=== PATIENT | male | born 2005 | race Two or more races ===

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

== ENCOUNTER 2025-02-01 00:36 | Emergency (ER) | payer OTHER, SELFPAY ==
[2025-02-01 00:37] VITALS: BP 130/83; PULSE 63; RESP 17; TEMP 36.6; O2SAT 100
--- OUTSIDE RECORDS SUMMARY | 2025-02-01 00:38 | XMS_ITS | Clinical Summary ---
Author Organization [facility] Address [address] [place] [address] Care Team Providers Care Laboratory Aide Name Role Phone Unavailable Primary Care Provider Unavailabl e Source Comments [facility],non-owned Affiliates and Associated Physician Practices is amultiple site organization consisting of ambulatory clinics and hospital sitesin [place], [place], [place] and [place]. This disclosure is being madepursuant to the Care Everywhere program and may not contain all information available regarding this patient. Last updated 18.[employer] Allergies No known active allergies Medications * Be aware that medications may not be up to date on this document. Alwaysverify current medications with the patient. No known medications Family History Medical History Relation Name Comments ADHD Neg Hx Allergies Neg Hx Aneurysm Neg Hx Asthma Neg Hx Autoimmune Disease Neg Hx Bipolar Disorder Neg Hx CVA<55(male) Neg Hx CVA<65(female) Neg Hx Cancer - Breast Neg Hx Cancer - Colon Neg Hx Cancer - Other Neg Hx Cancer - Ovarian Neg Hx Cancer - Pancreatic Neg Hx Cancer - Prostate Neg Hx Childhood Hearing Disorder Neg Hx Clotting Disorder Neg Hx Depression Neg Hx Diabetes Neg Hx Eczema Neg Hx Genetic Neg Hx Heart defect Neg Hx Hypercholesterolemia Neg Hx Hypertension Neg Hx VT<55(male) Neg Hx VT<65(female) Neg Hx Mental Health Neg Hx Migraine Neg Hx Osteoporosis Neg Hx Seizures Neg Hx Sudd. <30 Neg Hx Thyroid Disease Neg Hx Ulcerative Colitis Neg Hx Social History Tobacco Use Types Packs/Day Years Used Date Smoking Tobacco: Never Sex and Gender Information Value Date Recorded Sex Assigned at Not on file Legal Sex Male 3:53 PM CDT Gender Identity Not on file Sexual Orientation Not on file Last Filed Vital Signs Vital Sign Reading Time Taken Comments Blood Pressure 102/64 04/04/2016 4:03 PM CDT Pulse 74 04/04/2016 4:03 PM CDT Temperature 37.1 C (98.7 F) 04/04/2016 4:03 PM CDT Respiratory Rate 20 04/04/2016 4:03 PM CDT Oxygen Saturation 98% 04/04/2016 4:03 PM CDT Inhaled Oxygen Concentration - - Weight 37.6 kg (83 lb) 04/04/2016 4:03 PM CDT Height 144.8 cm (4' 9) 04/04/2016 4:03 PM CDT Body Mass Index 17.96 04/04/2016 4:03 PM CDT Plan of Treatment Health Maintenance Due Date Last Done Comments HIV SCREENING 2019 HPV VACCINE (1 - Male 3-dose series) 2019 MENINGOCOCCAL (Group B) VACC INE SHARED DECISION-MAKING (1 of 2 - Standard) 2020 HEPATITIS C SCREENING 05/30/2022 DTAP/TDAP/TD VACCINES (1 - Tdap) 2023 HEPATITIS B VACCINE (1 of 3 - 19+ 3-dose series) 2023 COVID-19 VACCINE (1 - 2023-2 5 season) 2024 DEPRESSION SCREENING 08/03/2024 INFLUENZA VACCINE (Season Ended) 2025 ZOSTER VACCINE (1 of 2) 2054 HIB VACCINE Aged Out No longer eligi ble based on patient's age to complete this topic MENINGOCOCCAL GROUPS A/C/Y/W VACCINE Aged Out No longer eligible b ased on patient's age to complete this topic PNEUMOCOCCAL VACCINE Aged Out No long er eligible based on patient's age to complete this topic
--- OUTSIDE RECORDS SUMMARY | 2025-02-01 01:38 | XMS_ITS | Clinical Summary ---
Author Organization [facility] Address [address] [place] [address] Care Team Providers Care District Court Justice Name Role Phone Unavailable Primary Care Provider Unavailabl e Source Comments [facility],non-owned Affiliates and Associated Physician Practices is amultiple site organization consisting of ambulatory clinics and hospital sitesin [place], [place], [place] and [place]. This disclosure is being madepursuant to the Care Everywhere program and may not contain all information available regarding this patient. Last updated 18.[employer] Allergies No known active allergies Medications * [...] Hx Hypercholesterolemia Neg Hx Hypertension Neg Hx MN<55(male) Neg Hx MN<65(female) Neg Hx Mental Health Neg Hx Migraine [...]
--- NOTE | 2025-02-01 02:00 | ED_ITS ---
HPI - Wound/Laceration General Chief Complaint: Wound/Laceration Stated Complaint: Lac to L thumb Time Seen by Provider: 02/01/25 01:21 Source: patient Mode of arrival: ambulatory Limitations: no limitations History of Present Illness HPI narrative: This is a 19 year old male that presents to the ER for laceration to the left thumb sustained just prior to arrival. Reports he accidentally cut his thumb with a blade. Reports bleeding and pain to the area. Denies decreased ROM or numbness. Related Data Allergies Allergy/AdvReac Type Severity Reaction Status Date / Time No Known Allergies Allergy Verified 02/01/25 00:36 Review of Systems Review of Systems: All systems reviewed & are unremarkable except as noted in HPI and below PMFSH Past Medical History Medical History (Updated 02/01/25 @ 03:02 by Margarita Hill PA-C) No active medical problems Exam Narrative: GENERAL: Well-appearing, well-nourished, and in no acute distress. HEAD: Normocephalic, atraumatic. EYES: EOMI. EXTREMITIES: Normal range of motion. No edema. 2cm linear laceration into subcutaneous tissue to the left thumb volar aspect proximal phalanx SKIN: Warm, dry, no rash. NEURO: No focal deficits. Alert and oriented x3. PSYCH: Normal mood and affect Course Vital Signs Vital signs: Vital Signs Temperature 97.8 F 02/01/25 00:37 Pulse Rate 63 02/01/25 00:37 Respiratory Rate 17 02/01/25 00:37 Blood Pressure 130/83 02/01/25 00:37 Pulse Oximetry 100 02/01/25 00:37 Oxygen Delivery Room Air 02/01/25 00:37 Temperature 97.8 F 02/01/25 00:37 Pulse Rate 63 02/01/25 00:37 Respiratory Rate 17 02/01/25 00:37 Blood Pressure 130/83 02/01/25 00:37 Pulse Oximetry 100 02/01/25 00:37 Oxygen Delivery Room Air 02/01/25 00:37 Procedures Laceration Laceration 1: Date: 02/01/25 Time: 03:03 Site: hand Side (If applicable): left Size (cm): 2 Description: linear Depth: simple, single layer Local Anesthetic: lidocaine 1% Amount of anesthesia used (mL): 2 Pre-repair: wound explored and irrigated ====== Skin Level ====== Skin layer closed with: nylon Size (cm): 4-0 Number of sutures: 2 Technique: simple, interrupted ====== Subcutaneous Layer ====== ====== Muscle Layer ====== ====== Tendon Layer ====== MDM - Wound/Laceration MDM Narrative Medical decision making narrative: Patient presents emergency department for laceration to the left thumb. He is neurovascularly intact. Laceration was irrigated and closed with sutures. Reports he is up-to-date on tetanus vaccination. Educated on further wound care. Given warnings to return to the ER Differential Diagnosis Differential diagnosis: Likely laceration, abrasion and avulsion of skin Critical Care Time Critical Care Time Critical Care Time: No Discharge Plan Discharge Clinical Impression: Laceration Patient Disposition: Home Condition: Stable Instructions: Care For Your Stitches (ED), Laceration (ED) Additional Instructions: Return to the emergency department if you experience fever, redness or swelling of your wound, abnormal drainage from your wound, or any other symptoms that are concerning to you. Apply antibiotic ointment daily. Do not soak the wound. Clean with mild soap and water daily Follow-up with your primary care doctor for suture removal in 10-14 days. Patient Language: Djiboutian Prescriptions: No Action acetaminophen 500 mg tablet 500 mg PO Q6H PRN (Reason: pain) Qty: 30 0RF Follow-up/Referrals: PHYSICIAN,EMBEDDED SOFTWARE MANAGER [Primary Care Provider] - Efe Jackson MD [Physician] -
[2025-02-01 03:09] VITALS: BP 122/77; PULSE 88; RESP 18; O2SAT 100
== END 2025-02-01 03:09 | disposition home or self-care (01) ==
PROVIDERS: Emergency Provider Physician Assistant
DX: S61.012A Laceration without foreign body of left thumb without damage to nail, initial encounter (principal); W26.0XXA Contact with knife, initial encounter
CPT/HCPCS: 12001; 99282

== ENCOUNTER 2025-02-13 11:21 | Emergency (ER) | payer OTHER, SELFPAY ==
--- NOTE | 2025-02-13 11:23 | ED_ITS ---
HPI - Wound/Laceration General Chief Complaint: Skin/Abscess/Foreign Body Stated Complaint: stitch removal Source: patient and RN notes reviewed Mode of arrival: ambulatory Limitations: no limitations History of Present Illness HPI narrative: Patient is a 19-year-old male who presents to the [facility] with request for suture removal. 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 Related Data Home Medications ?Medication ?Instructions ?Recorded ?Confirmed ?Last Taken ?Type No Home Medications 02/13/25 02/13/25 Unknown History Allergies Allergy/AdvReac Type Severity Reaction Status Date / Time No Known Allergies Allergy Verified 02/13/25 11:33 Review of Systems Review of Systems: CONSTITUTIONAL: Denies fever, chills, or sweats. EYES: Denies visual changes, redness, or discharge. ENT: Denies otalgia and sore throat CARDIOVASCULAR: Denies chest pain, palpitations, or edema. RESPIRATORY: Denies cough or dyspnea. GASTROINTESTINAL: Denies abdominal pain, nausea, vomiting, or diarrhea. GENITOURINARY: Denies dysuria or hematuria. SKIN: Reports wound to left thumb. MUSCULOSKELETAL: Denies back pain, joint pain, or myalgia. NEUROLOGIC: Denies headache, numbness, or weakness. Pertinent positives per HPI. [facility] Past Medical History Medical History No active medical problems Comments At the time of my signature, I reviewed and agree with the nursing past medical, surgical, social, and family history. There is no relevant family history pertinent to the patient complaint. Exam Narrative: GENERAL: This is a well-nourished, well-developed patient, in no apparent distress. HEAD: normocephalic, atraumatic. EYES: Sclera clear/white. Vision is grossly intact. EARS: External ears normal. Hearing grossly intact. NOSE: External nose normal with no obvious nasal discharge, nares without redness, no rhinorrhea. THROAT: Mucous membranes moist, posterior pharynx clear. NECK: Neck supple, non-tender without lymphadenopathy, masses or thyromegaly. CARDIOVASCULAR: Regular rate and rhythm without murmurs, gallops, or rubs. RESPIRATORY: Clear to auscultation. Breath sounds equal bilaterally. No wheezes, rales, or rhonchi. GASTROINTESTINAL: Abdomen soft, non-tender, nondistended. Bowel sounds are active. No hepato-splenomegaly, or palpable masses. No guarding. SKIN: Healing laceration to the left thumb with [address] Good wound healing noted with no signs of infection. NEURO: awake, alert, and oriented to person, place and time. There were no obvious focal neurologic abnormalities. Course Course Level of Care: Express Care Visit Vital Signs Vital signs: Vital Signs Temperature 98.6 F 02/13/25 11:35 Pulse Rate 73 02/13/25 11:35 Respiratory Rate 18 02/13/25 11:35 Blood Pressure 113/67 02/13/25 11:35 Pulse Oximetry 99 02/13/25 11:35 Oxygen Delivery Room Air 02/13/25 11:35 Temperature 98.6 F 02/13/25 11:35 Pulse Rate 73 02/13/25 11:35 Respiratory Rate 18 02/13/25 11:35 Blood Pressure 113/67 02/13/25 11:35 Pulse Oximetry 99 02/13/25 11:35 Oxygen Delivery Room Air 02/13/25 11:35 Reviewed Procedures Other Procedure Procedure 1: Other Procedure: 2 sutures removed from left thumb. Good wound healing noted with no signs of infection. Patient tolerated procedure well. MDM - Wound/Laceration MDM Narrative Medical decision making narrative: Sutures removed. Good wound healing noted. Patient advised to continue to monitor for signs infection. Advised follow-up with primary care physician as needed. Differential Diagnosis Differential diagnosis: Likely laceration, abrasion and avulsion of skin Critical Care Time Critical Care Time Critical Care Time: No Discharge Plan Discharge Clinical Impression: Encounter for removal of sutures Patient Disposition: Home Condition: Stable Instructions: Stitches Removal (ED) Additional Instructions: Keep wound clean and dry. Monitor signs of infection. Follow-up with primary care physician as needed. Patient Language: Sami Prescriptions: No Action No Home Medications Follow-up/Referrals: PHYSICIAN,ECHOCARDIOGRAPHER [Primary Care Provider] - Time of Disposition: 11:43
--- OUTSIDE RECORDS SUMMARY | 2025-02-13 11:25 | XMS_ITS | Clinical Summary ---
Author Organization [facility] Address [address] [place] [address] Care Team Providers Care Stemhole Borer And Topper Name Role Phone Unavailable Primary Care Provider Unavailabl e Source Comments [facility],non-owned Affiliates and Associated Physician Practices is amultiple site organization consisting of ambulatory clinics and hospital sitesin [place], [place], [place] and [place]. This disclosure is being madepursuant to the Care Everywhere program and may not contain all information available regarding this patient. Last updated 18.[employer] Allergies No known active allergies Medications * [...] Hx Hypercholesterolemia Neg Hx Hypertension Neg Hx IN<55(male) Neg Hx IN<65(female) Neg Hx Mental Health Neg Hx Migraine [...] season) 2024 DEPRESSION SCREENING 08/03/2024 INFLUENZA VACCINE (#1) 2025 ZOSTER VACCINE (1 of 2) 2054 [...]
[2025-02-13 11:35] VITALS: BP 113/67; PULSE 73; RESP 18; TEMP 37; O2SAT 99
== END 2025-02-13 11:46 | disposition home or self-care (01) ==
PROVIDERS: Emergency Provider Nurse Practitioner
DX: S61.012D Laceration without foreign body of left thumb without damage to nail, subsequent encounter (principal); W26.8XXD Contact with other sharp object(s), not elsewhere classified, subsequent encounter
CPT/HCPCS: 99211; G0463